=== PATIENT | female | born 1945 | race Caucasian/White ===

== ENCOUNTER 2017-05-09 07:54 | Emergency (ER) | payer OTHER ==
[~2017-05-09] VITALS: Ht 154.9 cm; Wt 70.3 kg
[~2017-05-09 07:54] MED LIST: ULTRAM50 MG
[2017-05-09 08:20] LABS: MCH 31.8 PG (29.0-34.0); MCHC 32.5 G/DL (30.0-36.0); MCV 97.8 FL (83-99); MEAN PLAT.VOLUME 10.9 uM^3 (9.5-12.4); PLATELET COUNT 174 K/uL (156-360); RBC DIS.WIDTH-CV 12.2 % (11.8-14.6); RBC DIS.WIDTH-SD 43.8 % (39-53); WHITE BLOOD COUNT 8.9 K/uL (4.1-10.2)
[2017-05-09 08:54] LABS: CHLORIDE 115 mEq/L (99-109); POTASSIUM 3.6 mEq/L (3.7-5.4); SODIUM 143 mEq/L (136-147)
[2017-05-09 08:57] LABS: GLUCOSE 103 mg/dL (70-99)
[2017-05-09 08:58] LABS: ANION GAP 7 MEQ/L (2-14)
[2017-05-09 08:59] LABS: TOTAL BILIRUBIN 0.2 mg/dL (0.0-1.0)
[2017-05-09 09:00] LABS: ALKALINE PHOSPHATASE 96 IU/L (3-129); GFR ESTIMATE (CALCULATED) > 59 mL/min/
[2017-05-09 09:01] LABS: UREA NITROGEN (BUN) 10 mg/dL (9-23)
[2017-05-09 10:08] LABS: ADD MIUA? NO; BILIRUBIN NEGATIVE; BLOOD NEGATIVE; COLOR STRAW ((YELLOW)); GLUCOSE (STRIP) NEGATIVE; KETONES NEGATIVE; LEUKOCYTES NEGATIVE; NITRITE NEGATIVE; PROTEIN (STRIP) NEGATIVE; SPECIFIC GRAVITY 1.008 (1.000-1.030); UROBILINOGEN 0.2 MG/DL (0.2-1.0)
[2017-05-09 10:17] LABS: UCUL ADDED? NO
[2017-05-09] MEDS ORDERED: ANTIVERT25 MG PO (10:46)
[2017-05-09 10:56] VITALS: BP 122/77
== END 2017-05-09 11:10 | disposition home or self-care (01) ==
LOC: EME 07:54
PROVIDERS: Physician Assistant
DX: H81.10 Benign paroxysmal vertigo, unspecified ear (principal); F17.200 Nicotine dependence, unspecified, uncomplicated
CPT/HCPCS: 71020; 80048; 80053; 81003; 84484; 85027; 93005; 99281; 99285